=== PATIENT | male | born 1940 | race Caucasian/White ===

== ENCOUNTER 2017-11-27 08:46 | Inpatient (IN) | payer MEDICARE ==
--- NOTE | 2017-11-24 13:12 | Diagnostic Imaging Report ---
PROCEDURE: Frontal and lateral views of the chest. COMPARISON: Chest radiograph 03/25/2016 INDICATIONS: PREOPERATIVE CHEST XRAY FOR LEFT HIP SURGERY FINDINGS: Lines/tubes: None. Lungs: The lungs are hyperinflated with emphysematous changes. There is no evidence of pneumonia or pulmonary edema. Pleura: There is no pleural effusion or pneumothorax. Heart and mediastinum: Tortuous aorta with atherosclerotic calcifications. The heart and the mediastinum are normal. Bones: No acute bony abnormality. Degenerative changes of the spine. IMPRESSION: No acute cardiopulmonary disease. Dictated by: Dereck Najera M.D. on 11/24/2017 at 13:12 Electronically approved by: Dereck Najera M.D. on 11/24/2017 at 13:12
[~2017-11-27] VITALS: Ht 190.5 cm; Wt 89.4 kg
[~2017-11-27 08:46] MED LIST: AMLODIPINE BESYL5 MG PO; Aspirin PO; BENZONATATE100 MG PO; CEPHALEXIN500 MG PO; CYCLOBENZAPRINE PO; GABAPENTIN300 MG PO; IBUPROFEN400 MG PO; LISINOPRIL10 MG PO; METOPROLOL SUCC50 MG PO; NAPROXEN PO; NAPROXEN250 MG PO; NIFEDICAL XL PO; NORCO 10-325 T1 EACH PO; OMEPRAZOLE PO; OMEPRAZOLE40 MG PO; ROPIVACAINE 246.25 MG, EPINEPHRINE HCL 1:1000 0.5 MG, CLONIDINE HCL 0.08 MG, KETOROLAC ... INJ ONE
--- OUTSIDE RECORDS SUMMARY | 2017-11-27 08:49 | XMS REPORT ---
Author Author [facility] Address Unknown Phone Unavailable Care Team Providers Care Hardwood Floor Installer Name Role Phone LALO OLIVER Unavailable Unavailable Problems This patient has no known problems. Allergies, Adverse Reactions, Alerts This patient has no known allergies or adverse reactions. Medications This patient has no known medications. Results Test Description Test Time Test Comments Text Results Atomic Results Result Comments CHEST 2 VIEWS [place] [address] Patient Name: KATE GRIMM MR #: [id number] : 1940 Age/Sex: 77/M Req #: [id number] Adm Physician: Ordered by: LALO OLIVER MD Report #: [id number] Location: OR Room/Bed: Procedure: [id number] DX/CHEST 2 VIEWS Exam Date: 11/24/17 Exam Time: 1230 REPORT STATUS: Signed PROCEDURE: Frontal and lateral views of the chest. COMPARISON: Chest radiograph 03/25/2016 INDICATIONS: PREOPERATIVE CHEST XRAY FOR LEFT HIP SURGERY FINDINGS: Lines/tubes: None. Lungs: The lungs are hyperinflated with emphysematous changes. There is no evidence of pneumonia or pulmonary edema. Pleura: There is no pleural effusion or pneumothorax. Heart and mediastinum: Tortuous aorta with atherosclerotic calcifications. The heart and the mediastinum are normal. Bones: No acute bony abnormality. Degenerative changes of the spine. IMPRESSION: No acute cardiopulmonary disease. Dictated by: Dereck Gill M.D. on 11/24/2017 at 13:12 Electronically approved by: Dereck Gill M.D. on 11/24/2017 at 13:12 Dictated By: DERECK GILL MD 1312 COPY TO: LALO OLIVER MD
[2017-11-27] MEDS ORDERED: CELECOXIB 200 MG CAP ONE (08:51)
[2017-11-27] MEDS ORDERED: GABAPENTIN 300 MG CAP ONE (08:51)
[2017-11-27] MEDS ORDERED: DEXAMETHASONE SOD PHOS 10 MG/1 ML VIAL ONE (08:51)
[2017-11-27] MEDS ORDERED: CEFAZOLIN SOD 2 GM/D5W 50ML 50 ML IV ONE (08:52)
[2017-11-27 08:53] LABS: BASOPHILS # (AUTO) 0.1 (0.0-0.1); BASOPHILS % 0.7 % (0.0-1.0); EOSINOPHILS # (AUTO) 0.1 (0.0-0.4); EOSINOPHILS % 1.2 % (0.0-6.0); HEMOGLOBIN 12.8 g/dL (14.0-18.0); LYMPHOCYTES # (AUTO) 1.2 (1.0-3.2); LYMPHOCYTES % 14.6 % (18.0-39.1); MEAN CORPUSCULAR VOLUME 87.5 fL (81-99); MONOCYTES # (AUTO) 0.5 (0.2-0.8); MONOCYTES % 5.4 % (4.4-11.3); NEUTROPHILS # (AUTO) 6.4 (2.1-6.9); NEUTROPHILS % 77.6 % (38.7-80.0); PLATELET COUNT 313 x10e3/uL (140-360); RED BLOOD COUNT 4.57 x10e6/uL (4.3-5.7); RED CELL DISTRIBUTION WIDTH 15.9 % (11.7-14.4)
[2017-11-27 09:10] LABS: INR 1.13; PROTHROMBIN TIME 13.6 seconds (11.9-14.5)
[2017-11-27 09:11] LABS: PARTIAL THROMBOPLASTIN TIME 30.7 seconds (23.8-35.5)
[2017-11-27] MEDS ORDERED: MUPIROCIN 2% OINT 22 GM TUBE ONE (09:55)
[2017-11-27] MEDS ORDERED: BACITRACIN 50,000 UNIT VIAL ONE (09:56)
[2017-11-27] MEDS ORDERED: TRANEXAMIC ACID 1,000 MG/10 ML ML ONE (09:56)
[2017-11-27] MEDS ORDERED: HYDROGEN PEROXIDE 120 ML BTL ONE (10:10)
[2017-11-27] MEDS ORDERED: BUPIVACAINE 7.5MG/ML /DEXTROSE 82.5MG/ML 2 ML AMP INJ ONE (10:10)
[2017-11-27] MEDS ORDERED: SODIUM CHLORIDE 0.9% 1000ML 1,000 ML IV SCH (12:01)
[2017-11-27] MEDS ORDERED: DOCUSATE SODIUM 100 MG CAP PO PRN (12:15)
[2017-11-27] MEDS ORDERED: DIPHENHYDRAMINE HCL INJ 50 MG/ML VIAL IM/IV PRN (12:15)
[2017-11-27] MEDS ORDERED: ACETAMINOPHEN 650 MG SUPP PR PRN (12:15)
[2017-11-27] MEDS ORDERED: PROMETHAZINE HCL (IM) 25 MG/ML VIAL INJ PRN (12:15)
[2017-11-27] MEDS ORDERED: ZOLPIDEM TARTRATE 5 MG TAB PO PRN (12:15)
--- NOTE | 2017-11-27 13:10 | Diagnostic Imaging Report ---
PROCEDURE:X-RAY PELVIS, AP VIEW COMPARISON:None. INDICATIONS:POST OP HIP LEFT FINDINGS: Stable previous right total hip arthroplasty without evidence of loosening or infection. New postoperative changes of left total hip arthroplasty with subcutaneous gas as well as overlying skin neftaly. Diffuse soft tissue swelling. CONCLUSION: New postoperative changes of left total hip arthroplasty. Dictated by: Simon Bravo M.D. on 11/27/2017 at 13:10 Electronically approved by: Simon Bravo M.D. on 11/27/2017 at 13:10
--- NOTE | 2017-11-27 13:55 | Operative Report ---
DATE OF PROCEDURE: November 27, 2017 CONSUMER AFFAIRS SPECIALIST: Mook Contreras PA-C The patient was brought to the operating room for induction of anesthesia. Throughout this case, my PA's assistance was necessary for retraction of soft tissue and positioning of the extremity. This allows for efficient and technically successful execution of the operation and is considered medically necessary. PREOPERATIVE DIAGNOSIS: Osteoarthritis, left hip. POSTOPERATIVE DIAGNOSIS: Osteoarthritis, left hip. PROCEDURE: Left total hip arthroplasty. INDICATIONS: The patient is a medically frail 77-year-old gentleman who has osteoarthritis of his left hip. He has been through a right hip replacement and is happy with the results. He would now like to proceed with a left total hip replacement. The risks and benefits have been discussed. He states he understands and wishes to proceed. DESCRIPTION OF PROCEDURE: The patient was brought to the operating room and placed under general anesthetic. Preoperatively, he received a spinal anesthetic as well. He also received tranexamic acid and prophylactic antibiotics. He was positioned in the right lateral decubitus position. His left hip was prepped and draped in a sterile manner. A preoperative time out was performed. A limited incision posterior approach was made to the left hip. Hemostasis was obtained with electrocautery. Care was taken to avoid injury to the sciatic nerve. A self-retaining Charnley retractor was placed. The posterior capsule was carefully exposed. It was markedly contracture. The short external rotators and capsule were released. The hip was dislocated and an oscillating saw was used to resect the femoral head. Complete loss of articular cartilage was noted. Acetabular retractors were placed. The remnant of the labrum was excised. The true floor of the acetabulum was established with a 50-mm reamer. The socket was then sequentially reamed up to 59 mm. Bleeding hemispherical cancellous bone was accomplished. A cyst in the superior dome of the acetabulum was debrided and packed with autologous bone graft. A Saloni [employer] Trident socket with a 60 mm inner diameter was impacted into place. Fixation was augmented with a 25-mm screw. A highly cross link polyethylene liner with a 36 mm inner diameter was then impacted into place. Care was taken to make sure that there was no soft tissue interposition. The hip had been thoroughly irrigated with a shower-tip pulsatile lavage on several occasions during this portion of the case. A portion of a premixed pericapsular injection was placed into the soft tissue. The socket was packed with a moistly soaked lap sponge and attention was directed towards the proximal femur. A box cutting osteotome and taper pin reamer were used to establish entry to the femoral canal. The [place] broaches were impacted and trialed. A 44 mm offset #2 stem was had good canal fill for trial reductions. The trial implants were then removed. A medium size bone plug was placed down the femoral canal. The canal was thoroughly irrigated with a pulsatile lavage. It was packed with moistly soaked peroxide sponges under suction while the cement was mixed on the back table. Two mixes of Simplex cement preloaded with antibiotics were prepared. This was inserted in a retrograde fashion at about 3 minutes of cement time. This was pressurized until about 7 minutes of cement time. The stem was seated to the predetermined level. Once the cement completely cured, repeat trial reductions were performed. As with the right side, I elected to use a +5 mm femoral head. The head was seated onto the stem and a final reduction was performed. The posterior capsule could be repaired with interrupted #2 Ethibond. The short external rotators were too contracted to repair. The wound was further irrigated with a shower-tip pulsatile lavage. The remainder of the 100 mL pericapsular DESTINI injection was placed into the soft tissue. The tensor fascia and gluteal fascia were closed with #2 Ethibond. The skin was closed with subcuticular Vicryl and neftaly. Estimated blood loss was approximately 100 mL. At the end of the procedure, all needle and sponge counts were correct. Job#: [id number] ELIZABETH
[2017-11-27] MEDS ORDERED: CEFAZOLIN SOD 1 GM/NS 50ML 50 ML IV SCH ×2 (14:00→17:00)
[2017-11-27 14:08] VITALS: BP 110/70
[2017-11-27 15:32] VITALS: BP 110/72
[2017-11-27 16:16] VITALS: BP 138/92
[2017-11-27] MEDS ORDERED: CELECOXIB 100 MG CAP PO SCH (17:00)
[2017-11-27] MEDS: CELECOXIB 200 MG CAP PO SCH (17:40)
[2017-11-27] MEDS: CEFAZOLIN SOD 1 GM VIAL IV SCH (17:40)
[2017-11-27] MEDS: ASPIRIN 325 MG TAB PO SCH (17:40)
[2017-11-27] MEDS: ACETAMINOPHEN 1000 MG/100 ML IV SCH (17:41)
[2017-11-27] MEDS ORDERED: ONDANSETRON HCL INJ 2 MG/ML VIAL ONE (18:09)
[2017-11-27] MEDS ORDERED: LIDOCAINE HCL 2% LOCAL INJ 5 ML SDV VIAL INJ ONE (18:09)
[2017-11-27] MEDS ORDERED: SEVOFLURANE INHAL SOLN 250 ML PEN BTL ONE (18:09)
[2017-11-27] MEDS ORDERED: DEXAMETHASONE SOD PHOS INJ 4 MG/ML VIAL ONE (18:09)
[2017-11-27] MEDS ORDERED: PROPOFOL IV EMULSION 10 MG/ML 20 ML VIAL ONE (18:09)
[2017-11-27] MEDS ORDERED: FENTANYL CITRATE/PF 100MCG/2 ML INJ ONE (18:24)
[2017-11-27] MEDS ORDERED: MIDAZOLAM HCL 2 MG/2 ML VIAL ONE (18:24)
[2017-11-27 20:00] VITALS: BP 152/79
[2017-11-27] MEDS: HYDROCODONE/APAP 7.5MG-325MG 1 EA TAB PO PRN (21:22)
[2017-11-27] MEDS: KETOROLAC TROMETHAMINE 30 MG/ML VIAL IV PRN (22:50)
[2017-11-28] VITALS: BP 136/65
[2017-11-28] MEDS: CEFAZOLIN SOD 1 GM VIAL IV SCH ×2 (01:33→09:51)
[2017-11-28] MEDS: HYDROCODONE/APAP 7.5MG-325MG 1 EA TAB PO PRN ×2 (01:33→07:21)
[2017-11-28 04:00] VITALS: BP 139/67
[2017-11-28] MEDS ORDERED: NAPROXEN 250 MG TAB PO PRN (04:30)
[2017-11-28] MEDS: ONDANSETRON HCL INJ 2 MG/ML VIAL IV PRN ×2 (04:40→15:40)
[2017-11-28] MEDS ORDERED: CALCIUM CARBONATE 500 MG CHEWABLE TABS PO PRN (04:45)
[2017-11-28] MEDS: ACETAMINOPHEN 1000 MG/100 ML IV SCH ×3 (05:15→12:00)
[2017-11-28] MEDS: BENZONATATE 100 MG CAP PO PRN (05:16)
[2017-11-28 06:52] LABS: HEMATOCRIT 36.4 % (38.2-49.6); HEMOGLOBIN 11.7 g/dL (14.0-18.0)
[2017-11-28] MEDS ORDERED: PANTOPRAZOLE SOD 40 MG TABEC PO SCH (07:30)
[2017-11-28] MEDS: CELECOXIB 200 MG CAP PO SCH ×2 (08:00→17:00)
[2017-11-28 08:25] VITALS: BP 204/99
[2017-11-28] MEDS: ASPIRIN 325 MG TAB PO SCH ×2 (08:49→17:00)
[2017-11-28] MEDS: GABAPENTIN 300 MG CAP PO SCH ×2 (08:49→17:00)
[2017-11-28] MEDS: AMLODIPINE BESYLATE 5 MG TAB PO SCH (08:49)
[2017-11-28] MEDS: LISINOPRIL 10 MG TAB PO SCH (08:50)
[2017-11-28] MEDS: KETOROLAC TROMETHAMINE 30 MG/ML VIAL IV PRN ×2 (10:24→18:41)
--- NOTE | 2017-11-28 11:05 | Diagnostic Imaging Report ---
PROCEDURE:ABDOMEN-1VIEW (KUB) TECHNIQUE:Supine AP abdomen INDICATION:Distended abdomen; vomiting COMPARISON:None. FINDINGS: Gaseous distention of the stomach, small and large bowel. No gross evidence of ascites. No irregular calcifications. Bilateral total left hip arthroplasty. Surgical neftaly over the left hip consistent with recent surgery. Grossly intact skeleton with multilevel degenerative disc disease. CONCLUSION: Diffuse gaseous distention of the bowel suggestive of postoperative ileus. Dictated by: Ender Cardenas M.D. on 11/28/2017 at 11:06 Electronically approved by: Ender Cardenas M.D. on 11/28/2017 at 11:06
[2017-11-28] MEDS ORDERED: SODIUM CHLORIDE 0.9% 50ML 50 ML ONE (12:03)
[2017-11-28] MEDS ORDERED: ACETAMINOPHEN 1000 MG/100 ML IV PRN (12:15)
[2017-11-28 12:18] VITALS: BP 162/73
[2017-11-28 16:36] VITALS: BP 126/72
[2017-11-28] MEDS: PANTOPRAZOLE SOD 40 MG TABEC PO SCH (17:00)
[2017-11-28] MEDS ORDERED: HYDROCODONE/APAP 5MG-325MG TAB PO PRN (18:00)
[2017-11-28 20:00] VITALS: BP 137/65
[2017-11-28] MEDS: ALBUTEROL/IPRATROPIUM 3 ML NEB NEB PRN (22:30)
[2017-11-29] VITALS: BP 90/54
[2017-11-29 04:00] VITALS: BP 124/71
[2017-11-29 06:56] LABS: HEMATOCRIT 33.8 % (38.2-49.6); HEMOGLOBIN 10.7 g/dL (14.0-18.0)
[2017-11-29] MEDS: ALBUTEROL/IPRATROPIUM 3 ML NEB NEB PRN (07:30)
[2017-11-29] MEDS: CELECOXIB 200 MG CAP PO SCH (08:00)
[2017-11-29 08:17] VITALS: BP 134/69
[2017-11-29] MEDS ORDERED: ASPIRIN325 MG PO (08:39)
[2017-11-29] MEDS ORDERED: Hydrocodone/Apap 5MG-325MG PO (08:39)
[2017-11-29] MEDS: AMLODIPINE BESYLATE 5 MG TAB PO SCH (09:00)
[2017-11-29] MEDS: PANTOPRAZOLE SOD 40 MG TABEC PO SCH (09:00)
[2017-11-29] MEDS: ASPIRIN 325 MG TAB PO SCH (09:00)
[2017-11-29] MEDS: LISINOPRIL 10 MG TAB PO SCH (09:00)
[2017-11-29] MEDS: GABAPENTIN 300 MG CAP PO SCH (09:00)
[2017-11-29 11:48] VITALS: BP 108/59
== END 2017-11-29 12:22 | DRG 470 ==
LOC: OR 08:46 → MED/SURG 13:14
PROVIDERS: ADMIT Specialist; ATTEND Specialist
PROC: 0SRB049 Replacement of Left Hip Joint with Ceramic on Polyethylene Synthetic Substitute, Cemented, Open Approach (ICD-10-PCS; principal; 2017-11-27 08:30)
DX: M16.12 Unilateral primary osteoarthritis, left hip (principal); J44.9 Chronic obstructive pulmonary disease, unspecified; D64.9 Anemia, unspecified; Z96.641 Presence of right artificial hip joint; M85.652 Other cyst of bone, left thigh; K21.9 Gastro-esophageal reflux disease without esophagitis; I10 Essential (primary) hypertension; R11.0 Nausea
CPT/HCPCS: 36415; 71046; 72170; 74018; 82271; 85014; 85018; 85025; 85610; 85730; 86850; 86900; 86920; 93005; 94640; J0171; J0690; J1100; J1885; J2001; J2250; J2405; J2550; J2795; J7030